=== PATIENT | female | born 1980 | race Caucasian/White ===

== ENCOUNTER 2018-04-14 05:09 | Inpatient (IN) | payer BC ==
[~2018-04-14] VITALS: Ht 170.2 cm; Wt 204.4 kg
[2018-04-14] MEDS ORDERED: VITAMIN E 400 U4001 PO (05:34)
[2018-04-14] MEDS ORDERED: XANAX 0.5MG0.5 MG PO (05:35)
[2018-04-14] MEDS ORDERED: ASPIRIN 81M81 MG/TA2 PO (05:35)
[2018-04-14 05:42] LABS: BASO % 0.4 % (0.0-2.0); EOS % 0.4 % (0-4.0); GRAN # 5.2 (1.4-6.5); GRAN % 68.5 % (42.2-75.2); HEMATOCRIT 44.5 % (37.0-47.0); LYMPH # 1.6 (1.2-3.4); LYMPH % 20.8 % (20.0-51.0); MEAN CELL VOLUME 84 fl (80.0-100.0); MEAN CORPUSCULAR HEMOGLOBIN 27 pg (27.0-31.0); MEAN CORPUSCULAR HGB CONC 32 g/dl (33.0-37.0); MEAN PLATELET VOLUME 11.8 fl (7.4-10.4); MONO # 0.7 (0.1-0.6); MONO % 9.5 % (1.7-9.3); PLATELET COUNT 207 K/mm3 (130-400); RED BLOOD COUNT 5.27 M/mm3 (4.10-5.30); REDCELL DISTRIBUTION WIDTH-CV 15.9 % (11.5-14.5)
[2018-04-14 05:51] LABS: ALBUMIN 4.1 gm/dL (3.5-5.0); BILIRUBIN,TOTAL 3.5 mg/dL (0.0-1.0); CALCIUM 9.5 mg/dL (8.4-10.2); CREATININE, serum 0.78 mg/dL (0.52-1.25); POTASSIUM 3.8 mmol/L (3.4-5.0); TOTAL PROTEIN 7.6 gm/dL (6.4-8.2)
[2018-04-14 06:03] LABS: TROPONIN-I 0.033 ng/mL (0.000-0.035)
[2018-04-14 06:15] LABS: INR 1.4 (0.8-3.0); PROTHROMBIN TIME 15.4 SECONDS (9.7-12.8)
[2018-04-14 06:18] LABS: PARTIAL THROMBOPLASTIN TIME 28.1 SECONDS (26.0-37.0)
[2018-04-14 06:21] LABS: TSH w REFLEX 2.7 uIU/mL (0.465-4.680)
[2018-04-14 08:03] VITALS: BP 102/80; PULSE 123; TEMP 99.4
--- NOTE | 2018-04-14 08:03 | NUR ---
Patient arrives by stretcher accompanied by MENDEZ العراقي. Patient ambulates from stretcher to bed. Patient is changed into gown on arrival. Denies any pain at this time, but is experiencing some dyspnea on exertion. Patient assessment completed. Patient's right leg features two areas that are darkened in color, with some scabbing at center. Lesion closer to ankle is larger in size, featuring a [id number] that is costume designer in color and roughened, surrounded skin that is darkened in color. Area of abrasion on left side of groin under skin fold. Patient comes to ICU with IV Cardizem drip at 7.5 mg/hr, and heparin at 2300 units/hr. Will notify doctors of patient's arrival to unit. Will continue to monitor.
[2018-04-14 08:15] VITALS: BP 102/80; PULSE 139; TEMP 99.4
[2018-04-14 08:20] VITALS: PULSE 137
[2018-04-14] MEDS ORDERED: LASIX 20MG TABL20 MG PO (10:50)
[2018-04-14] MEDS ORDERED: NATURAL POTASS595 MG PO (10:54)
[2018-04-14] MEDS ORDERED: BUSPIRONE HCL7.5 MG PO (10:57)
[2018-04-14 12:00] VITALS: BP 113/88; PULSE 100; TEMP 99.4
--- NOTE | 2018-04-14 12:00 | NUR ---
Patient resting in bed. Denies pain at this time, but states she is having some shortness of breath when she is not sitting up. Patient eating lunch. Heart rate remains in 100-110s but irregular. Will continue to monitor.
--- NOTE | 2018-04-14 14:09 | NUR ---
Heparin paused based on HepX result. Per protocol, will retest HepX and PTT in 2 hrs.
[2018-04-14 16:00] VITALS: BP 104/76; PULSE 106; TEMP 99.2
[2018-04-14 16:44] LABS: PARTIAL THROMBOPLASTIN TIME 49.7 SECONDS (26.0-37.0)
--- NOTE | 2018-04-14 17:50 | NUR ---
Heparin drip titrated to 2000 units/hr per protocol. Checked with Jing Lowery RN. Next HepX in 6 hrs. Orders placed.
--- NOTE | 2018-04-14 19:45 | NUR ---
Bedside report received from Rupal SIMMS. Pt sitting in bed with dinner plan and reports "I'm just not that hungry." Pt alert and present for report at this time.
--- NOTE | 2018-04-14 19:45 | NUR ---
Bedside report given to MENDEZ Madrid.
[2018-04-14 20:00] VITALS: BP 113/64; PULSE 107; TEMP 98.5
[2018-04-15] VITALS (14 sets, daily range): BP systolic 99–124; BP diastolic 53–96; PULSE 89–117; TEMP 97.6–98.7
[2018-04-15 07:10] LABS: BASO % 0.5 % (0.0-2.0); EOS # 0.1 (0.0-0.7); EOS % 1.1 % (0-4.0); GRAN # 3.6 (1.4-6.5); GRAN % 57.8 % (42.2-75.2); HEMATOCRIT 37.6 % (37.0-47.0); HEMOGLOBIN 12.2 g/dl (12.5-16.0); LYMPH # 1.7 (1.2-3.4); LYMPH % 27.6 % (20.0-51.0); MEAN CELL VOLUME 83 fl (80.0-100.0); MEAN CORPUSCULAR HEMOGLOBIN 27 pg (27.0-31.0); MEAN CORPUSCULAR HGB CONC 32 g/dl (33.0-37.0); MEAN PLATELET VOLUME 11.8 fl (7.4-10.4); MONO # 0.8 (0.1-0.6); MONO % 12.7 % (1.7-9.3); PLATELET COUNT 183 K/mm3 (130-400); RED BLOOD COUNT 4.55 M/mm3 (4.10-5.30); REDCELL DISTRIBUTION WIDTH-CV 15.9 % (11.5-14.5)
--- NOTE | 2018-04-15 07:25 | NUR ---
Pt was assisted to MRI via tool technician in a wheelchair with O2.
[2018-04-15 07:26] LABS: ALBUMIN 3.7 gm/dL (3.5-5.0); BILIRUBIN,TOTAL 3.2 mg/dL (0.0-1.0); CREATININE, serum 0.7 mg/dL (0.52-1.25); POTASSIUM 3.7 mmol/L (3.4-5.0); TOTAL PROTEIN 6.8 gm/dL (6.4-8.2)
--- NOTE | 2018-04-15 07:30 | NUR ---
Report received from MENDEZ Madrid.
--- NOTE | 2018-04-15 07:30 | NUR ---
Pt report provided to Jing Smart RN. Pt has been assisted to MRI and is not currently in room.
--- NOTE | 2018-04-15 08:10 | NUR ---
Pt returned back to ICU03 at this time.
--- NOTE | 2018-04-15 08:15 | NUR ---
Assessment completed. Pt sitting up in bed. Denies any pain at this time. VSS. Remains on Cardizem and heparin gtts. Pt c/o burning at left FA PIV site. PIV flushed, no blood return. Pt request pIV taken out. Catheter intact and pressure dressing placed. Vickie from [facility] placed a 24g in left wrist.
--- NOTE | 2018-04-15 10:10 | NUR ---
Notified Ramesh from Anesthesia of cardioversion at 1030.
--- NOTE | 2018-04-15 10:58 | NUR ---
Ramesh from Anesthesia arrived in room at 1030 for cardioversion. Consent for NICOLE and Cardioversion in pt's chart. Dr wolfe at bedside at 1040. Time out complete for NICOLE and cardioversion at bedside by this RN, Dr Wolfe and JAUNA Chandler. NICOLE performed by Dr wolfe at 1043. Sedation completed by JUANA Chandler. See anesthesia form in chart. Pt now awake, and discussing NICOLE findings with Dr wolfe at bedside.
--- NOTE | 2018-04-15 11:14 | NUR ---
SW met with mitch after clinical rounds. Patient lives independently at home with her , sister, and mother. Patient's PCP is [facility] in [place]. Patient reports she does not have any issues obtaining prescriptions and she uses [facility] in [place]. Patient does not have a DPOA for healthcare decisions but is interested in that. SW provided the form and will come back when patient is ready to sign. No other needs at this time but SW will continue to follow.
--- NOTE | 2018-04-15 16:00 | NUR ---
Pt c/o migraine. Called ODALIS Frye with Dr Nolen. Will start her on tylenol PRN.
--- NOTE | 2018-04-15 17:00 | NUR ---
Called ODALIS Frye with Dr Nolen. Pt requesting dinner since she was NPO all day and NPO tomorrow for procedure. Okay to have dinner and NPO after midnight.
--- NOTE | 2018-04-15 19:30 | NUR ---
Bedside report received from Jing Smart RN. Pt is resting at the side of the bed with finished dinner plate in front. Requested to use the toilet and receive privacy at this time.
--- NOTE | 2018-04-15 19:37 | NUR ---
Bedside report given to MENDEZ Madrid
--- NOTE | 2018-04-15 19:58 | NUR ---
Pt assessment complete. Pt resting in bed following ambulation to toilet in room. Pt is pleasant and cooperative with assessment. Requested privacy once transfered with stand by assistance to the restroom. Once staff returned to room pt was already done with nate care and walking back to bed. Reported noticing an increase in breathing and agreed to wear Bipap at bedside this evening. Discussed with this nurse knowing stress of sister and her kids living with pt is causing health problems and expressed increased desire to talk to sister once well and at home. Pt has been noted to ask questions to staff in regards to health through out assessment.
--- NOTE | 2018-04-15 23:49 | NUR ---
Pt reported feeling more difficulty breathing. VSS. Lung sounds remain CTA. Notified RT. Bipap was placed. Pt was asked if feeling anxious and wanted some PRN Xanax and pt declined at this time. Will continue to reasses.
[2018-04-16] VITALS (13 sets, daily range): BP systolic 102–137; BP diastolic 52–84; PULSE 77–122; TEMP 97.6–99.1
--- NOTE | 2018-04-16 03:00 | NUR ---
Pt noted to be tolerating the Bipap since application earlier this shift. Pt is resting in bed in a high fowlers position.
[2018-04-16 05:14] LABS: BASO % 0.6 % (0.0-2.0); EOS # 0.1 (0.0-0.7); EOS % 1.3 % (0-4.0); GRAN # 3.1 (1.4-6.5); GRAN % 58.4 % (42.2-75.2); HEMATOCRIT 37.9 % (37.0-47.0); HEMOGLOBIN 11.7 g/dl (12.5-16.0); LYMPH # 1.5 (1.2-3.4); LYMPH % 28.2 % (20.0-51.0); MEAN CELL VOLUME 85 fl (80.0-100.0); MEAN CORPUSCULAR HEMOGLOBIN 26 pg (27.0-31.0); MEAN CORPUSCULAR HGB CONC 31 g/dl (33.0-37.0); MEAN PLATELET VOLUME 11.8 fl (7.4-10.4); MONO # 0.6 (0.1-0.6); MONO % 11.3 % (1.7-9.3); PLATELET COUNT 195 K/mm3 (130-400); RED BLOOD COUNT 4.44 M/mm3 (4.10-5.30); REDCELL DISTRIBUTION WIDTH-CV 15.9 % (11.5-14.5)
[2018-04-16 05:32] LABS: ALBUMIN 3.5 gm/dL (3.5-5.0); BILIRUBIN,TOTAL 2.7 mg/dL (0.0-1.0); CREATININE, serum 0.72 mg/dL (0.52-1.25); TOTAL PROTEIN 6.7 gm/dL (6.4-8.2)
--- NOTE | 2018-04-16 07:15 | NUR ---
Report provided to Jing Smart RN
--- NOTE | 2018-04-16 07:15 | NUR ---
Bedside report received from MENDEZ Madrid.
--- NOTE | 2018-04-16 08:00 | NUR ---
Assessment completed. Pt sitting up in bed. Discussed plan of care r/t stress test for today and NPO status. Pt verbalizes understanding. Discussed low sodium diet and heart medications with pt. Pt verbalizes understanding. VSS. Denies any pain. Will monitor.
--- NOTE | 2018-04-16 10:34 | NUR ---
Initial visit; Patient thanked Chapraffy for looking in on her and offering God's blessings and keeping her in Antique Furniture Restorer's prayers.
--- NOTE | 2018-04-16 11:50 | NUR ---
SW attended clinical rounds. reports patient can move out of the ICU and upstairs to the floor. No need at this time but SW will continue to follow.
--- NOTE | 2018-04-16 12:00 | NUR ---
Pt sitting up in bed. VSS. Remains on heparin gtt. Denies any pain. Education provided on CHF. CHF binder given to pt. Questions answered and pt verbalized understanding. Pt does not want dietition at this time to discuss low sodium food options.
--- NOTE | 2018-04-16 13:30 | NUR ---
Report given to Medical floor RN, Shiva. Pt given PRN xanax for stress test. Pt sitting up in bed. States she can tell diuretics are working now.
--- NOTE | 2018-04-16 14:00 | NUR ---
Pt to stress test via wheelchair.
--- NOTE | 2018-04-16 15:45 | NUR ---
Patient arrived up to the floor from ICU at this time, she is alert/oriented, vital signs stable, denies pain, just finished with her lexiscan stress test
--- NOTE | 2018-04-16 19:19 | NUR ---
Sitting at bedside. Assessment complete. Bases bilaterally diminished. Bowels active. Alert and orientated. Left forearm redness. Patient states from IV contrast yesterday. Denies pain. Denies needs at this time. Call light in reach.
--- NOTE | 2018-04-16 21:00 | NUR ---
Resting in bed. IV site right forearm dressing changed at patient request due to dried blood. Denies needs at this time. Call light in reach.
--- NOTE | 2018-04-17 02:30 | NUR ---
Resting in bed with bipap on. Denies needs at this time. New heparin bag hung. Roro Ascencio RN in room to verify. Call light in reach.
[2018-04-17 04:02] VITALS: BP 112/67; PULSE 76; TEMP 97.7
--- NOTE | 2018-04-17 06:06 | NUR ---
Resting in bed asleep. Uneventful night. Call light in reach.
[2018-04-17 07:14] LABS: ALBUMIN 3.4 gm/dL (3.5-5.0); CALCIUM 9.1 mg/dL (8.4-10.2); CREATININE, serum 0.7 mg/dL (0.52-1.25); POTASSIUM 3.7 mmol/L (3.4-5.0); TOTAL PROTEIN 6.5 gm/dL (6.4-8.2)
[2018-04-17 08:01] VITALS: BP 110/54; PULSE 87; TEMP 98.3
[2018-04-17 09:04] LABS: INR 1.3 (0.8-3.0); PROTHROMBIN TIME 15.2 SECONDS (9.7-12.8)
--- NOTE | 2018-04-17 09:19 | NUR ---
Follow-up visit; Patient thanked Buckle Frame Shaper for looking in on her again today. Arorn is smiling and states she is feeling much better.
--- NOTE | 2018-04-17 09:38 | NUR ---
Assessment completed, alert/oriented, vital signs stable, denies pain this morning, she reports her breathing is easier today but still gets SOA with exertion, her lungs are clear but dimininished/distant, heart a.fib on tele but rate controlled, heparin gtt contineus at 20.0 ml/hr no rate change this morning / next HepXa 04/18/ @ 0500, she is sitting up at the edge of the bed, did patient education on C-pap/ lifestyle changes and weight loss, patient has a positive attitude towards things and understands plan of care
[2018-04-17 11:09] VITALS: BP 96/76; PULSE 58; TEMP 97.7
--- NOTE | 2018-04-17 11:35 | NUR ---
NORMA and NORMA student attended clinical rounds. The hospitalist discussed the option of swing bed at [facility] for the patient to continue a heparin drip. The patient reports that she would prefer to return back home in [place]. NORMA then discussed swing bed at [facility]. The patient reports that she would still prefer to go home, but if insurance would cover, then she would be agreeable to transfer there. NORMA contacted Sherley at [facility] Swing Bed. Sherley reports that they do not administer heparin drips in swing bed. NORMA informed the pharmacist. NORMA to inform the patient and continue to follow.
[2018-04-17 15:21] VITALS: BP 97/55; PULSE 102; TEMP 98.7
--- NOTE | 2018-04-17 20:30 | NUR ---
Heparin drip stopped at this time.
--- NOTE | 2018-04-17 20:48 | NUR ---
Resting in bed. Assessment complete. Lungs clear. Bowels active. Heart sounds normal. +3 edema in bilateral lower legs. Discoloration to lower legs. Denies pain. Urine yellow/orange and cloudy. Denies needs at this time. Call light in reach.
[2018-04-17 20:51] VITALS: BP 108/70; PULSE 110; TEMP 97.7
[2018-04-17 21:40] VITALS: BP 124/68; PULSE 103
[2018-04-18 01:11] VITALS: BP 108/55; PULSE 96; TEMP 98
[2018-04-18 04:36] VITALS: BP 100/38; PULSE 114; TEMP 98.5
[2018-04-18 06:21] LABS: BASO % 0.4 % (0.0-2.0); EOS # 0.1 (0.0-0.7); EOS % 1.7 % (0-4.0); GRAN # 2.9 (1.4-6.5); GRAN % 58.9 % (42.2-75.2); HEMATOCRIT 38.5 % (37.0-47.0); HEMOGLOBIN 11.8 g/dl (12.5-16.0); LYMPH # 1.4 (1.2-3.4); LYMPH % 28.2 % (20.0-51.0); MEAN CELL VOLUME 86 fl (80.0-100.0); MEAN CORPUSCULAR HEMOGLOBIN 26 pg (27.0-31.0); MEAN CORPUSCULAR HGB CONC 31 g/dl (33.0-37.0); MEAN PLATELET VOLUME 12.4 fl (7.4-10.4); MONO # 0.5 (0.1-0.6); MONO % 10.4 % (1.7-9.3); PLATELET COUNT 218 K/mm3 (130-400)
[2018-04-18 06:41] LABS: CALCIUM 9.3 mg/dL (8.4-10.2); CREATININE, serum 0.79 mg/dL (0.52-1.25); POTASSIUM 3.9 mmol/L (3.4-5.0)
[2018-04-18 06:52] LABS: INR 1.4 (0.8-3.0); PROTHROMBIN TIME 16.1 SECONDS (9.7-12.8)
--- NOTE | 2018-04-18 07:12 | NUR ---
Sitting at bedside this AM. Uneventful night. Report given MENDEZ Stroud.
[2018-04-18 07:41] VITALS: BP 94/35; PULSE 98; TEMP 97.5
--- NOTE | 2018-04-18 09:12 | NUR ---
Follow-up; Arron out walking, doing her physical therapy and seems very optimistic. She thanked Mess Cook for offering encouragement and blessings.
--- NOTE | 2018-04-18 10:02 | NUR ---
SW attended clinical rounds. The patient plans to return home with her family and will be on Lovenox injections. The patient reports that she has administered them in the past and feels comfortable doing them again. She states that if she needs help, her will be available to do so. No additional needs at this time.
--- NOTE | 2018-04-18 10:08 | NUR ---
Patient sitting up on side of bed. Call light is within reach. Is plesant and smiling with staff. Denies having any pain. Aldactone, lasix and zestril held this morning due to hypotension. Patient was explained why the medications were not given and verbalized understanding. Patient had no further needs or questions.
[2018-04-18 10:47] VITALS: BP 96/71; PULSE 105; TEMP 98
--- NOTE | 2018-04-18 11:48 | NUR ---
Desitin and bacitracin ointments not administered. Patient is sleepy and resistive to cares.
[2018-04-18] MEDS ORDERED: LOVENOX 100100 MG/ML SQ (14:03)
[2018-04-18] MEDS ORDERED: COUMADIN 5MG5 MG/TAB PO (14:03)
[2018-04-18] MEDS ORDERED: ZESTRIL 10MG10 MG PO (14:04)
[2018-04-18] MEDS ORDERED: LOPRESSOR 225 MG/TAB PO (14:04)
[2018-04-18] MEDS ORDERED: ALDACTONE 25MG25 M1 PO (14:05)
== END 2018-04-18 16:30 | disposition home or self-care (01) | DRG 175 ==
LOC: COL.ER 05:09 → MEDICAL 07:30 → ICU 07:30 → MEDICAL 04-16 14:00
PROVIDERS: Emergency Medicine; Family Medicine; Nurse Practitioner Family; Physician Assistant; ADMIT Family Medicine
DX: I26.99 Other pulmonary embolism without acute cor pulmonale (principal); I50.21 Acute systolic (congestive) heart failure; Z68.45 Body mass index [BMI] 70 or greater, adult; I82.431 Acute embolism and thrombosis of right popliteal vein; I42.0 Dilated cardiomyopathy; I48.91 Unspecified atrial fibrillation; I51.3 Intracardiac thrombosis, not elsewhere classified; E66.01 Morbid (severe) obesity due to excess calories; F41.9 Anxiety disorder, unspecified; F41.0 Panic disorder [episodic paroxysmal anxiety]
CPT/HCPCS: 99222-AI; 99232-AI; 99233-AI; A9500; A9585; G9654; J1644; J1650; J1940; J2250; J2704; J2785; J7030; Q9967

== ENCOUNTER 2018-06-05 08:05 | Inpatient (IN) | payer BC ==
[~2018-06-05] VITALS: Ht 170.2 cm; Wt 191.5 kg
[2018-06-05] VITALS (13 sets, daily range): BP systolic 91–143; BP diastolic 59–98; PULSE 80–118; TEMP 97.8–98.2
[~2018-06-05 08:05] MED LIST: ALDACTONE 25MG25 M1 PO; ASPIRIN 81M81 MG/TA2 PO; BUSPIRONE HCL7.5 MG PO; COUMADIN 5MG5 MG/TAB PO; LASIX 20MG TABL20 MG PO; LOPRESSOR 225 MG/TAB PO; LOVENOX 100100 MG/ML SQ; NATURAL POTASS595 MG PO; VITAMIN E 400 U4001 PO; XANAX 0.5MG0.5 MG PO; ZESTRIL 10MG10 MG PO
[2018-06-05] MEDS ORDERED: LOPRESSOR 550 MG/TAB PO (08:59)
[2018-06-05] MEDS ORDERED: COUMADIN 77.5 MG/TAB PO (09:02)
[2018-06-05 09:08] LABS: HEMATOCRIT 37.3 % (37.0-47.0); HEMOGLOBIN 11.8 g/dl (12.5-16.0); MEAN CELL VOLUME 80 fl (80.0-100.0); MEAN CORPUSCULAR HEMOGLOBIN 25 pg (27.0-31.0); MEAN CORPUSCULAR HGB CONC 32 g/dl (33.0-37.0); MEAN PLATELET VOLUME 10.6 fl (7.4-10.4); PLATELET COUNT 268 K/mm3 (130-400); RED BLOOD COUNT 4.64 M/mm3 (4.10-5.30)
[2018-06-05 09:18] LABS: CALCIUM 8.9 mg/dL (8.4-10.2); CREATININE, serum 0.74 mg/dL (0.52-1.25); POTASSIUM 4.2 mmol/L (3.4-5.0)
[2018-06-05 09:22] LABS: PROTHROMBIN TIME 33.7 SECONDS (9.7-12.8)
[2018-06-05 09:49] LABS: THYROID STIMULATING HORMONE 5.42 uIU/mL (0.465-4.680)
--- NOTE | 2018-06-05 10:18 | NUR ---
SEDATION GIVEN BY ANESTHESIA. RN WILL RESUME CARE AFTER HANDOFF FROM ANESTHESIA TO THIS RN.
--- NOTE | 2018-06-05 11:00 | NUR ---
PT BACK TO ROOM 12 POST CARDIOVERSION WITH NICOLE. NICOLE PERFORMED, CARDIOVERSION UNSUCCESSFUL. PT BACK TO EXPRESS UNTIL BED AVAILABLE FOR SOTALOL ADMISSION. VITALS STABLE, HR IRREGULAR. SLIGHT REDNESS PRESENT WHEN PADS WERE PLACED ON CHEST AND BACK.PT DENIES PAIN AT THIS TIME. WILL CONTINUE TO MONITOR.
[2018-06-05 11:42] LABS: ALBUMIN 3.7 gm/dL (3.5-5.0); BILIRUBIN,TOTAL 2.7 mg/dL (0.0-1.0); CREATININE, serum 0.74 mg/dL (0.52-1.25); MAGNESIUM 1.9 mg/dL (1.6-2.3); POTASSIUM 4.3 mmol/L (3.4-5.0); TOTAL PROTEIN 7.2 gm/dL (6.4-8.2)
[2018-06-05] MEDS ORDERED: TOPROL XL 50MG50 MG PO (15:00)
[2018-06-05 15:41] LABS: BASO % 0.7 % (0.0-2.0); EOS # 0.1 (0.0-0.7); EOS % 3.2 % (0-4.0); GRAN # 2.7 (1.4-6.5); HEMOGLOBIN 11.1 g/dl (12.5-16.0); LYMPH # 1.1 (1.2-3.4); LYMPH % 25.7 % (20.0-51.0); MEAN CELL VOLUME 82 fl (80.0-100.0); MEAN CORPUSCULAR HEMOGLOBIN 25 pg (27.0-31.0); MEAN CORPUSCULAR HGB CONC 31 g/dl (33.0-37.0); MEAN PLATELET VOLUME 10.8 fl (7.4-10.4); MONO # 0.4 (0.1-0.6); MONO % 8.2 % (1.7-9.3); PLATELET COUNT 259 K/mm3 (130-400); RED BLOOD COUNT 4.39 M/mm3 (4.10-5.30); REDCELL DISTRIBUTION WIDTH-CV 17.9 % (11.5-14.5)
[2018-06-05 15:42] LABS: HEMATOCRIT 35.9 % (37.0-47.0)
--- NOTE | 2018-06-05 16:15 | NUR ---
Patient arrived to room and oriented. Medications and allergies reviewed. Shift assessment completed. patient is A&Ox4, denies palpitations, chest pain, or SOB at the moment. Pt does mention where the cardioversion pads were placed, feels like a sunburn and is a little irritated. Patient does experience dyspnea on exertion and is independent. IV to the right hand is CDI, no redness, edema or drainage. Lung sounds are clear bilaterally. Heart rhythm is irregular. BLE 2+ pitting edema. Feet are scaling/cracking and dry. Right leg has a stage 1 ulcer that is crusted over. First dose of Sotalol was given downstairs at 1200. Patient has no needs at this time.
--- NOTE | 2018-06-05 18:40 | NUR ---
Shift report given to MENDEZ Velez.
--- NOTE | 2018-06-05 20:24 | NUR ---
Patient assessed at this time. Denies having pain and discomfort at this time. Patient has red areas from cardioversion to chest, abdomen, and back. States the ones on her chest are irritated and feel like a sunburn. Heart rate irregular. Denies having chest pain and SOB. LS CTA. 3+ edema to BLE. BLE have red discoloration. Pedal pulses present and equal bilaterally. Old ulcer to RLE. Crusted over without drainage. Sitting up in bed watching TV at this time. Call light is within reach.
[2018-06-06] VITALS (8 sets, daily range): BP systolic 89–117; BP diastolic 41–82; PULSE 54–169; TEMP 97.4–98.5
--- NOTE | 2018-06-06 02:52 | NUR ---
Patient has not been able to sleep tonight. Complaining of irritation to chest from cardioversion. Patient given icepack to put on area. Voices no other needs or concerns at this time. Call light is within reach.
--- NOTE | 2018-06-06 06:36 | NUR ---
Denies having pain and discomfort except to cardioversion sites. Ice did seem to help. Given new ice packs as requested for areas. Voices no other needs or concerns at this time. Patient did state that she need to have [facility] paperwork filled out for her job. composite layup worker consult put in to assist with paperwork. Patient has not been able to sleep during the night. Call light is within reach.
[2018-06-06 07:01] LABS: BASO % 0.6 % (0.0-2.0); EOS # 0.2 (0.0-0.7); EOS % 3.8 % (0-4.0); GRAN # 2.7 (1.4-6.5); GRAN % 57.1 % (42.2-75.2); HEMOGLOBIN 11.2 g/dl (12.5-16.0); LYMPH # 1.4 (1.2-3.4); LYMPH % 29.4 % (20.0-51.0); MEAN CELL VOLUME 82 fl (80.0-100.0); MEAN CORPUSCULAR HEMOGLOBIN 26 pg (27.0-31.0); MEAN CORPUSCULAR HGB CONC 31 g/dl (33.0-37.0); MEAN PLATELET VOLUME 10.5 fl (7.4-10.4); MONO # 0.4 (0.1-0.6); MONO % 8.9 % (1.7-9.3); PLATELET COUNT 255 K/mm3 (130-400); RED BLOOD COUNT 4.37 M/mm3 (4.10-5.30)
[2018-06-06 07:08] LABS: HEMATOCRIT 35.8 % (37.0-47.0)
[2018-06-06 07:15] LABS: CREATININE, serum 0.79 mg/dL (0.52-1.25); MAGNESIUM 1.9 mg/dL (1.6-2.3); POTASSIUM 3.8 mmol/L (3.4-5.0)
[2018-06-06 07:18] LABS: INR 3.1 (0.8-3.0); PROTHROMBIN TIME 35.2 SECONDS (9.7-12.8)
--- NOTE | 2018-06-06 09:44 | NUR ---
Pt is awake and A/Ox4, sitting up in bed. She denies pain but states she does have some discomfort to her chest and back from CV marley. Given silvadene cream to apply per Dr. Wolfe's order. QTC 515, spoke with Dr. Wolfe and MENDEZ Barrera who stated to go ahead and give AM dose of sotalol. Saline lock to right hand is free of complications. Healing ulcer to RLE noted. Pt updated on plan of care, expressed understanding. Denies any needs.
--- NOTE | 2018-06-06 12:44 | NUR ---
Pt is sleeping soundly in bed.
--- NOTE | 2018-06-06 15:22 | NUR ---
Pt given ice pack for marley to chest from CV, states silvadene cream is not helping. Denies any other needs.
--- NOTE | 2018-06-06 15:32 | NUR ---
NORMA met with the patient to discuss discharge plan. The patient lives in [place] with her (Swapnil), her daughter, her mother, sister, and her sister's children. 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. She reports independence with ADLs and does not use any DME. The patient's primary care provider is HELLEN Zurita and she receives her medications at the [facility] in [place]. She reports no difficultes obtaining her meds. The patient plans to return home with her family upon discharge. The patient did has questions and concerns about getting FMLA paperwork filled out. She reports that after her last hospital stay, her PCP did not feel comfortable filling it out, due to cardiology knowing her restrictions. The patient reports that her will be bringing in the paperwork tonight. NORMA to talk to cardiologies nurse to ask if they are able to fill out her paperwork. NORMA to continue to follow.
--- NOTE | 2018-06-06 18:23 | NUR ---
Pt has had an overall uneventful shift. She has had ice pack to chest on and off throughtout the day. Pt aware to be NPO at mid noc for CV in AM. Consent signed. Family at bedside.
--- NOTE | 2018-06-06 21:30 | NUR ---
PT QTC 517- CARDIOLOGY WAS CALLED THIS MORNING
--- NOTE | 2018-06-06 21:48 | NUR ---
pt resting in bed A+Ox4. no pain. reports heart palpatations on occasions. no needs at this time. call light inreach.
[2018-06-07 04:00] VITALS: BP 108/72; PULSE 108; TEMP 97.9
--- NOTE | 2018-06-07 05:16 | NUR ---
pt had an uneventful night. pt has burn sher from previous cardioversion. ice given for application- reports some relief. NPO after midnight. no needs at this time. call light inreach
[2018-06-07 06:05] LABS: BASO % 0.6 % (0.0-2.0); EOS # 0.2 (0.0-0.7); EOS % 3.4 % (0-4.0); GRAN % 57.8 % (42.2-75.2); HEMOGLOBIN 11.2 g/dl (12.5-16.0); LYMPH # 1.6 (1.2-3.4); LYMPH % 29.8 % (20.0-51.0); MEAN CELL VOLUME 82 fl (80.0-100.0); MEAN CORPUSCULAR HEMOGLOBIN 26 pg (27.0-31.0); MEAN CORPUSCULAR HGB CONC 31 g/dl (33.0-37.0); MEAN PLATELET VOLUME 10.9 fl (7.4-10.4); MONO # 0.4 (0.1-0.6); MONO % 8.2 % (1.7-9.3); PLATELET COUNT 259 K/mm3 (130-400); RED BLOOD COUNT 4.39 M/mm3 (4.10-5.30); REDCELL DISTRIBUTION WIDTH-CV 18.3 % (11.5-14.5)
[2018-06-07 06:06] LABS: HEMATOCRIT 36.1 % (37.0-47.0)
[2018-06-07 06:11] LABS: CALCIUM 8.9 mg/dL (8.4-10.2); CREATININE, serum 0.75 mg/dL (0.52-1.25); MAGNESIUM 1.9 mg/dL (1.6-2.3); POTASSIUM 3.9 mmol/L (3.4-5.0)
[2018-06-07 06:15] LABS: INR 2.4 (0.8-3.0); PROTHROMBIN TIME 27.6 SECONDS (9.7-12.8)
--- NOTE | 2018-06-07 07:20 | NUR ---
Spoke with Dr. Wolfe informed him QTC was 514, informed me to still give dose of Betapace.
[2018-06-07 07:43] VITALS: BP 106/76; PULSE 100; TEMP 97.6
--- NOTE | 2018-06-07 08:19 | NUR ---
Pt lying in bed, breathing even and unlabored. Awakens to verbal stimuli. Denies any pain or shortness of breath. Completed morning assessment. Pt has 3 red areas from her cardioversion where the pads irritated her skin. Pt says they are not painful, just itching some. Pt NPO for cardioversion this AM. Call light in reach.
[2018-06-07 10:52] VITALS: BP 125/90; PULSE 95
--- NOTE | 2018-06-07 10:55 | NUR ---
SEDATION PROVIDEDBY ANESTHESIA FOR THIS CASE. SEE PATIENT CHART FOR ANESTHESIA RECORDS. THIS RN WILL TAKE OVER RECOVERY CARE FROM ANESTHESIA WHEN APPROPRIATE/AFTER HANDOFF FROM ANESTHESIA. SEE MERGE FOR RASS AND MODERATE SEDATION ASSESSMENTS.
--- NOTE | 2018-06-07 11:00 | NUR ---
Pt back on floor from cardioversion. Post op vitals started. Call light in reach.
[2018-06-07] MEDS ORDERED: BETAPACE 80MG80 MG PO (11:20)
[2018-06-07 11:33] VITALS: BP 114/67; PULSE 88; TEMP 98.5
--- NOTE | 2018-06-07 11:33 | NUR ---
NORMA informed the patient's nurse that the patient had FMLA paperwork that needed to be filled out by either Dr. Wolfe or his nurse. The patient's nurse, Lani, informed NORMA that she contacted and provided the FMLA paperwork to Dr. Wolfe's nurse, Holly, for them to fill out. No additional needs at this time.
[2018-06-07 11:48] VITALS: BP 120/78; PULSE 91
[2018-06-07 12:00] VITALS: BP 128/67; PULSE 91
--- NOTE | 2018-06-07 13:18 | NUR ---
Removed pt INT to RH, Catheter tip intact, no redness or edema noted. Gave pt all discharge paperwork. Answered all questions. Pt will take all belongings with her.
== END 2018-06-07 13:18 | disposition home or self-care (01) | DRG 309 ==
LOC: COL.CAR 08:05 → MEDICAL 15:09 → COL.CAR 15:10 → MEDICAL 15:11
PROVIDERS: Nurse Practitioner; ADMIT Internal Medicine Cardiovascular Disease
PROC: 5A2204Z Restoration of Cardiac Rhythm, Single (ICD-10-PCS; principal; 2018-06-05)
PROC: 5A2204Z Restoration of Cardiac Rhythm, Single (ICD-10-PCS; 2018-06-07)
DX: I48.0 Paroxysmal atrial fibrillation (principal); Z68.44 Body mass index [BMI] 60.0-69.9, adult; I51.3 Intracardiac thrombosis, not elsewhere classified; I42.9 Cardiomyopathy, unspecified; Z79.01 Long term (current) use of anticoagulants; E66.01 Morbid (severe) obesity due to excess calories; Z86.711 Personal history of pulmonary embolism
CPT/HCPCS: OP; G0378; J1940; J2704; J7050

== ENCOUNTER 2022-03-16 12:21 | Inpatient (IN) | payer OTHER ==
[~2022-03-16] VITALS: Wt 195.5 kg
[~2022-03-16 12:21] MED LIST changes: +BETAPACE 80MG80 MG PO; +COUMADIN 77.5 MG/TAB PO; +LOPRESSOR 550 MG/TAB PO; +TOPROL XL 50MG50 MG PO
[2022-03-16 12:50] LABS: BASO % 0.3 % (0.0-2.0); GRAN # 5.3 K/mm3 (1.4-6.5); GRAN % 79.5 % (42.2-75.2); HEMATOCRIT 40.2 % (37.0-47.0); HEMOGLOBIN 12.7 g/dl (12.5-16.0); LYMPH # 0.7 K/mm3 (1.2-3.4); LYMPH % 10.7 % (20.0-51.0); MEAN CELL VOLUME 83 fl (80.0-100.0); MEAN CORPUSCULAR HEMOGLOBIN 26 pg (27-31); MEAN CORPUSCULAR HGB CONC 32 g/dl (33.0-37.0); MEAN PLATELET VOLUME 9.8 fl (7.4-10.4); MONO # 0.6 K/mm3 (0.1-0.6); MONO % 9.2 % (1.7-9.3); PLATELET COUNT 267 K/mm3 (130-400); RED BLOOD COUNT 4.85 M/mm3 (4.10-5.30); REDCELL DISTRIBUTION WIDTH-CV 15.7 % (11.5-14.5)
[2022-03-16 13:09] LABS: ALBUMIN 3.4 gm/dL (3.5-5.0); BILIRUBIN,TOTAL 0.7 mg/dL (0.2-1.2); CREATININE, serum 1.01 mg/dL (0.57-1.11); POTASSIUM 3.6 mmol/L (3.5-4.5); TOTAL PROTEIN 8.2 gm/dL (6.2-8.1)
[2022-03-16 13:15] LABS: TROPONIN-I 0.011 ng/mL (0.00-0.033)
[2022-03-16 17:16] LABS: INR 4.1 (0.8-3.0)
[2022-03-16 17:18] LABS: PROTHROMBIN TIME 48.1 SECONDS (9.7-12.8)
[2022-03-16] MEDS ORDERED: COUMADIN 1010 MG/TAB PO (18:31)
[2022-03-16] MEDS ORDERED: WELLBUTRIN XL150 MG PO (18:32)
[2022-03-16 18:41] VITALS: BP 136/66; PULSE 97; TEMP 102.8
[2022-03-16 21:00] VITALS: BP 102/48; PULSE 90; TEMP 100.2
[2022-03-17] VITALS (7 sets, daily range): BP systolic 102–135; BP diastolic 49–67; PULSE 62–88; TEMP 97.8–98.7
[2022-03-17 01:31] LABS: COLLECTION METHOD CLEAN CATCH
[2022-03-17 01:39] LABS: MUCOUS Present (NOT PRESENT); URINE BACTERIA None Seen /hpf (NONE SEEN)
[2022-03-17 01:40] LABS: PH 5.5 (5.0-8.5); URINE APPEARANCE Clear (CLEAR/HAZY); URINE BLOOD Negative (NEGATIVE); URINE COLOR Yellow (YELLOW); URINE GLUCOSE Negative (NEGATIVE); URINE KETONE Negative (NEGATIVE); URINE NITRATE Negative (NEGATIVE); URINE PROTEIN(semi-quant) TRACE (NEGATIVE); URINE UROBILINOGEN 0.2 E.U/dL (0.2-1.0)
--- NOTE | 2022-03-17 02:26 | NUR ---
PT HAS A SLIGHT END EXP WHEEZE S/P TREATMENT. NO DISTRESS NOTED. PT PLACED BACK ON 4L NC TO KEEP SATURATIONS 92% AND GREATER. PT STATES SHE FEELS SLIGHTLY BETTER AFTER TREATMENT.
[2022-03-17 06:49] LABS: GRAN # 4.3 K/mm3 (1.4-6.5); GRAN % 86.5 % (42.2-75.2); HEMATOCRIT 38.3 % (37.0-47.0); LYMPH # 0.6 K/mm3 (1.2-3.4); LYMPH % 11.3 % (20.0-51.0); MEAN CELL VOLUME 83 fl (80.0-100.0); MEAN CORPUSCULAR HEMOGLOBIN 26 pg (27-31); MEAN CORPUSCULAR HGB CONC 31 g/dl (33.0-37.0); MEAN PLATELET VOLUME 10.6 fl (7.4-10.4); MONO # 0.1 K/mm3 (0.1-0.6); PLATELET COUNT 250 K/mm3 (130-400); REDCELL DISTRIBUTION WIDTH-CV 15.6 % (11.5-14.5)
[2022-03-17 07:06] LABS: CALCIUM 8.8 mg/dL (8.4-10.2); CREATININE, serum 0.88 mg/dL (0.57-1.11); PHOSPHOROUS 3.5 mg/dL (2.3-4.7); POTASSIUM 3.3 mmol/L (3.5-4.5)
--- NOTE | 2022-03-17 09:39 | NUR ---
Initial visit: Apolinar Heller thanked Air Cargo Specialist for visiting and requested prayer. Air Cargo Specialist offered prayer and asked that Arron take care of her young body, that these are the only bodies we have. Arron was teary-eyed. Air Cargo Specialist offered God's blessings.
--- NOTE | 2022-03-17 09:59 | NUR ---
SHIFT ASSESSMENT COMPLETED AND PO MEDICATIONS ADMINISTERED. WHEN FLUSHING PATIENT'S IV TO RIGHT AC, IT WAS NOTED TO BE LEAKING. IV REMOVED WITH CATHETER INTACT AND GAUZE DRESSING APPLIED. ATTEMPTED IV INSERTION X1, WHICH WAS UNSUCCESFUL. ADDITIONAL RN IN ROOM AT THIS TIME ATTEMPTING IV PLACEMENT. LUNGS DIMINSHED WITH SOME INSPIRATORY WHEEZING NOTED. PATIENT HAS NON-PRODUCTIVE COUGH. C/O INTERMITTENT PAIN WITH COUGHING, DENIES PAIN AT REST, DENIES NEED FOR PAIN MEDICATIONS. UP IN BED AT THIS TIME EATING BREAKFAST, DENIES FURTHER NEEDS. CALL LIGHT WITHIN REACH.
--- NOTE | 2022-03-17 10:03 | NUR ---
PATIENT NOTED TO NOT HAVE TELEMETRY IN PLACE THIS MORNING, TELEMETRY IMPLEMENTED PER ORDER. PATIENT CURRENTLY IN NORMAL SINUS RHYTHM.
--- NOTE | 2022-03-17 16:10 | NUR ---
Organ Pipe Finisher met with patient to discuss discharge planning. Patient lives in [place] with her , Swapnil and daughter, age 10[address] Josias Moraes for primary care and obtains medications from [facility] in [place]. Patient does not use any DME but currently is requiring oxygen. Patient is independent with ADLS and plans to return home at time of discharge. Patient is interested in completing DPOA- paperwork designating her , Swapnil and daughter, Maxim. NORMA and NORMA Lanza provided witness signature. NORMA placed original and copies to patient, then placed copy in chart. Discharge Plan: Home
--- NOTE | 2022-03-17 19:20 | NUR ---
PATIENT UP IN BED AT THIS TIME WITH FAMILY AT BEDSIDE. PRN COUGH MEDICINE GIVEN PER PATIENT REQUEST. DENIES FURTHER NEEDS. CALL LIGHT WITHIN REACH.
[2022-03-18 03:08] VITALS: BP 108/49; PULSE 58; TEMP 98.1
[2022-03-18 07:01] LABS: ALBUMIN 3.1 gm/dL (3.5-5.0); CALCIUM 9.2 mg/dL (8.4-10.2); CREATININE, serum 0.88 mg/dL (0.57-1.11); POTASSIUM 3.9 mmol/L (3.5-4.5)
[2022-03-18 07:20] LABS: HEMATOCRIT 39.5 % (37.0-47.0); HEMOGLOBIN 12.3 g/dl (12.5-16.0); MEAN CELL VOLUME 83 fl (80.0-100.0); MEAN CORPUSCULAR HEMOGLOBIN 26 pg (27-31); MEAN CORPUSCULAR HGB CONC 31 g/dl (33.0-37.0); MEAN PLATELET VOLUME 10.8 fl (7.4-10.4); PLATELET COUNT 215 K/mm3 (130-400); RED BLOOD COUNT 4.77 M/mm3 (4.10-5.30); REDCELL DISTRIBUTION WIDTH-CV 15.3 % (11.5-14.5)
[2022-03-18 08:00] VITALS: BP 107/56; PULSE 67; TEMP 98.2
[2022-03-18 08:07] LABS: BAND 12 % (0-10); LYMPHOCYTE 20 % (20.0-51.0); NEUTROPHILS 63 % (42.0-75.2); PLATELET ESTIMATE NORMAL (NORMAL)
--- NOTE | 2022-03-18 10:07 | NUR ---
PATIENT ALERT AND ORIENTED X4. VSS. PATIENT HERE FOR SOB AND COUGH X1 WEEK. PATIENT DENIES PAIN. RIGHT FA INT, FLUSHES WELL. PATIENT ON 3L PER NC. POTASSIUM PROTOCOL IN PLACE, REPLACED ORALLY X1. CALL LIGHT WITHIN REACH.
[2022-03-18 11:46] VITALS: BP 111/52; PULSE 65; TEMP 98
[2022-03-18 12:42] LABS: INR 4.1 (0.8-3.0)
[2022-03-18 12:56] LABS: PROTHROMBIN TIME 47.4 SECONDS (9.7-12.8)
--- NOTE | 2022-03-18 13:02 | NUR ---
CRITICAL LAB INR 4.1 AND PT 47[address] KAMARA.
[2022-03-18 16:00] VITALS: BP 110/58; PULSE 55; TEMP 98.3
[2022-03-18 19:54] VITALS: BP 98/62; PULSE 55; TEMP 97.7
--- NOTE | 2022-03-18 20:00 | NUR ---
SHIFT REPORT RECEIVED. PT A&O x4. PT SITTING UP AT EDGE OF BED, IS INDEPENDENT IN MOBILITY AND IN HYGIENE CARE. PT ON 2L HUMIFIED NC. LUNG SOUNDS COARSE DIMINISHED THROUGH OUT ALL DEMPSEY. PT HAS AGGRESSIVE COUGH THAT SHE REPORTS BEING "MOSTLY NON-PRODUCTIVE". PT HAS BURSTED CAPILLARIES IN LT EYE FROM COUGH. PT HAS VENOUS STASIS IN BL LOWER LEGS WITH +2 EDEMA. BUE WITH +2 EDEMA. PT HAS BMI OF 71.7 AND IS IN SPECIALTY BARIATRIC BED. PT DECLINES SKIN CHECK AND STATES "MY SKIN IS FINE, IDON'T HAVE ANY ISSUES THERE". PT IS SR WITH SRB WHEN SLEEPING. CALL LIGHT WITH PT AT BEDSIDE TABLE AND ALL NEEDS ADRESSED.
[2022-03-19 05:12] VITALS: BP 113/58; PULSE 54; TEMP 98.2
[2022-03-19 07:10] LABS: HEMATOCRIT 37.5 % (37.0-47.0); HEMOGLOBIN 12.1 g/dl (12.5-16.0); MEAN CELL VOLUME 81 fl (80.0-100.0); MEAN CORPUSCULAR HEMOGLOBIN 26 pg (27-31); MEAN CORPUSCULAR HGB CONC 32 g/dl (33.0-37.0); MEAN PLATELET VOLUME 10.5 fl (7.4-10.4); PLATELET COUNT 268 K/mm3 (130-400); RED BLOOD COUNT 4.63 M/mm3 (4.10-5.30); REDCELL DISTRIBUTION WIDTH-CV 15.1 % (11.5-14.5)
[2022-03-19 07:11] LABS: INR 3.2 (0.8-3.0); PROTHROMBIN TIME 37.7 SECONDS (9.7-12.8)
[2022-03-19 07:18] LABS: C-REACTIVE PROTEIN 4.31 mg/dL (0.00-0.50); CALCIUM 9.2 mg/dL (8.4-10.2); CREATININE, serum 0.76 mg/dL (0.57-1.11); MAGNESIUM 2.2 mg/dL (1.6-2.6); PHOSPHOROUS 4.1 mg/dL (2.3-4.7)
[2022-03-19 07:32] LABS: BAND 6 % (0-10); LYMPHOCYTE 13 % (20.0-51.0); NEUTROPHILS 71 % (42.0-75.2); PLATELET ESTIMATE NORMAL (NORMAL)
[2022-03-19 07:36] VITALS: BP 106/82; PULSE 66; TEMP 97.5
--- NOTE | 2022-03-19 09:34 | NUR ---
PT SITTING ON THE EDGE OF BED THIS AM. SHIFT ASSESSMENT PERFORMED AND MRONING MEDS ADMINISTERED. REDNESS NOTED IN LEFT EYE, Pt STATES IT'S BEEN LIKE THAT [id number] DUE TO COUGHING. VS WNL. NO FURTHER REQUESTS AT THIS TIME.
--- NOTE | 2022-03-19 11:28 | NUR ---
Plate Former rounds: Patient was tearful and experiencing emotions related to grief. Patient discussed with Plate Former the of her Father in 2014 and the of her Mother in 2020. Patient discussed the effects of her hospitalization on her 10-year-old daughter. Plate Former provided supportive listening; devotional; bible; and listed some various options for grief support groups once Patient has been discharged from the hospital. Plate Former prayed for Patient.
[2022-03-19 11:31] VITALS: BP 108/59; PULSE 56; TEMP 97.4
[2022-03-19] MEDS ORDERED: TESSALON P100 MG/CAP PO (14:20)
[2022-03-19] MEDS ORDERED: MEDROL 4MG DOSPA4 MG PO (14:20)
[2022-03-19] MEDS ORDERED: MONODOX100 PO (14:21)
[2022-03-19] MEDS ORDERED: OXYGEN (14:22)
[2022-03-19] MEDS ORDERED: PROAIR HFA0.09 MG/AC IH (14:22)
[2022-03-19] MEDS ORDERED: CHERATUSSIN AC120 ML PO (14:22)
--- NOTE | 2022-03-19 14:31 | NUR ---
NORMA notified that patient will need 2L of NC oxygen at home for the next 6 weeks. Met with patient who verbalizes that since she lives in , she would like to go with a DME company in . Reviewed DME companies that service . Patient chose [facility]. Phone call made to DME company and spoke with talent acquisition specialistpersonnel records clerk. Clinical information and orders faxed. They will deliver a tank, then set up the patients home concentrator at a later time. Patient updated and verbalized her agreement with this plan. Discharge plan: Home with new home oxygen set up.
[2022-03-19 15:30] VITALS: BP 114/63; PULSE 67; TEMP 97.6
== END 2022-03-19 16:23 | disposition home or self-care (01) | DRG 871 ==
LOC: COL.ER 12:21 → MEDICAL 13:31 → EDBEDREQ 15:58 → MEDICAL 03-19 16:23
PROVIDERS: Internal Medicine; Nurse Practitioner Family; Physician Assistant; ADMIT Internal Medicine
DX: A41.9 Sepsis, unspecified organism (principal); J12.9 Viral pneumonia, unspecified; J96.01 Acute respiratory failure with hypoxia; Z68.45 Body mass index [BMI] 70 or greater, adult; E66.01 Morbid (severe) obesity due to excess calories; I48.91 Unspecified atrial fibrillation; F10.90 Alcohol use, unspecified, uncomplicated; Z20.822 Contact with and (suspected) exposure to COVID-19; F41.9 Anxiety disorder, unspecified; I95.9 Hypotension, unspecified; I50.9 Heart failure, unspecified; Z90.49 Acquired absence of other specified parts of digestive tract; Z90.89 Acquired absence of other organs; Z86.711 Personal history of pulmonary embolism; Z79.01 Long term (current) use of anticoagulants
CPT/HCPCS: A9284; J0696; J1940; J2920; Q9967

== ENCOUNTER 2023-10-23 07:10 | Day surgery (SDC) | payer OTHER ==
[2023-10-23] VITALS (7 sets, daily range): BP systolic 91–132; BP diastolic 69–88; PULSE 75–90; TEMP 98
[~2023-10-23] VITALS: Ht 170.2 cm; Wt 211.2 kg
[~2023-10-23 07:10] MED LIST changes: +1/2 NS 1,000 ML IV SCH; +CHERATUSSIN AC120 ML PO; +COUMADIN 1010 MG/TAB PO; +MEDROL 4MG DOSPA4 MG PO; +MONODOX100 PO; +NS 1,000 ML IV SCH; +NS Flush 10 ML SYRINGE PRN ICA; +OXYGEN; +PROAIR HFA0.09 MG/AC IH; +TESSALON P100 MG/CAP PO; +WELLBUTRIN XL150 MG PO
[2023-10-23] MEDS ORDERED: LASIX 40MG TABL40 MG PO (07:59)
[2023-10-23] MEDS ORDERED: BETAPACE 120MG120 MG PO ×2 (07:59→11:21)
[2023-10-23] MEDS ORDERED: PRINIVIL10 MG PO (08:00)
[2023-10-23 08:40] LABS: HEMATOCRIT 41.2 % (37.0-47.0); HEMOGLOBIN 12.9 g/dl (12.5-16.0); MEAN CELL VOLUME 84 fl (80.0-100.0); MEAN CORPUSCULAR HEMOGLOBIN 26 pg (27-31); MEAN CORPUSCULAR HGB CONC 31 g/dl (33.0-37.0); MEAN PLATELET VOLUME 10.1 fl (7.4-10.4); PLATELET COUNT 304 K/mm3 (130-400); REDCELL DISTRIBUTION WIDTH-CV 14.9 % (11.5-14.5)
[2023-10-23] MEDS ORDERED: Lidocaine PF 1% (10 MG/ML) 5 ML VIAL ONE (08:45)
[2023-10-23 08:53] LABS: INR 2.9 (0.8-3.0); PROTHROMBIN TIME 31.3 SECONDS (9.7-12.8)
[2023-10-23 08:56] LABS: PARTIAL THROMBOPLASTIN TIME 53.1 SECONDS (26.0-37.0)
[2023-10-23 08:57] LABS: CALCIUM 8.9 mg/dL (8.4-10.2); CREATININE, serum 0.83 mg/dL (0.57-1.11); MAGNESIUM 1.9 mg/dL (1.6-2.6); POTASSIUM 3.7 mEq/L (3.5-4.5)
[2023-10-23] MEDS ORDERED: NS Flush 10 ML SYRINGE BID ICA SCH ×2 (09:00)
[2023-10-23 09:18] LABS: THYROID STIMULATING HORMONE 2.403 uIU/mL (0.350-4.940)
[2023-10-23] MEDS ORDERED: Hydrocortisone 1% Cream 30 GM TUBE TP PRN (09:45)
--- NOTE | 2023-10-23 09:55 | NUR ---
BS report and handoff of care to Sarita SIMMS after NICOLE and attempted CV with Dr. Wolfe.
--- NOTE | 2023-10-23 12:39 | NUR ---
PT TOLERATED RECOVERY PERIOD WELL. VS REMAINED WITHIN NORMAL LIMITS. IV DISCONTINUED UPON DISCHARGE. PT ASSISTED TO MAIN LOBBY VIA WHEELCHAIR AND REMAINED FREE FROM ACUTE CONCERNS AND COMPLAINTS. PT VERBALIZED UNDERSTANDING OF DISCHARGE INSTRUCTIONS. FOLLOW-UP APPOINTMENT DATE WAS GIVEN.
== END 2023-10-23 12:41 | disposition home or self-care (01) ==
LOC: COL.CAR 07:10
PROVIDERS: Internal Medicine Cardiovascular Disease
DX: I08.1 Rheumatic disorders of both mitral and tricuspid valves (principal)
CPT/HCPCS: J2704